=== PATIENT | male | born 2000 | race Caucasian/White ===

== ENCOUNTER 2023-12-01 13:12 | Emergency (ER) | payer OTHER ==
[~2023-12-01] VITALS: Ht 177.8 cm; Wt 83.9 kg
[2023-12-01 13:24] VITALS: BP 97/57; PULSE 61; RESP 16; TEMP 97.7; O2SAT 99
[2023-12-01] MEDS ORDERED: IBUP-2213 PO (16:08)
[2023-12-01 16:22] VITALS: BP 134/70; PULSE 89; RESP 18; TEMP 97.3; O2SAT 97
== END 2023-12-01 16:20 | disposition home or self-care (01) ==
LOC: MED 13:12
DX: N50.812 Left testicular pain (principal); N50.811 Right testicular pain; Z79.899 Other long term (current) drug therapy
CPT/HCPCS: 76870; 81002; 99284; Q0092